=== PATIENT | female | born 1985 | race Caucasian/White ===

== ENCOUNTER → 2017-05-11 | Outpatient (CLI) | payer OTHER ==
[~2017-05-11] MED LIST: ALBU2.5V3 NEB; ARIP5TAB7 PO; BEN25 PO; BUPR150T6 PO; FLUT16SP17 NASAL; IBUP-1542 PO; TRIA15CR55 TOP
--- NOTE | 2017-05-11 10:55 | RADRPT ---
PROCEDURE: XR Pelvis and Hips. CLINICAL INDICATION: Pelvic pain. Bilateral hip pain. TECHNIQUE: Five views. Frontal pelvis. Frontal and lateral right hip. Frontal and lateral left hip. COMPARISON: 07/30/2016. FINDINGS: There is no fracture or dislocation. The soft tissues are normal. There are mild degenerative changes of both hips with osteophytes. There is no lytic or blastic lesion. There is no radiopaque foreign body. IMPRESSION: 1. Mild bilateral hip osteoarthrosis. 2. No change from 07/30/2016. RPTAT: QQ .Benito Dean MD, MD Date Time Electronically viewed and signed by .Benito Dean MD, MD on 05/11/2017 10:55 .R/
--- NOTE | 2017-05-11 19:33 | HKNOTE ---
DATE OF SERVICE: 05/11/2017 HISTORY OF PRESENT ILLNESS: The patient had a cortisone injection into her left greater trochanteric bursa in July 2016. This gave her excellent relief of the pain, which lasted several months. The pain has now recurred over the last 3 months and she requests repeat injection. PHYSICAL EXAMINATION: Clinically, the patient is morbidly obese. She has marked tenderness over the left greater trochanter. The hip itself is a full range of motion. Examination of the right hip with full range of motion without pain. IMAGING: Plain x-rays of the pelvis and hips obtained today show slight narrowing of the left hip joint space. DISCUSSION: The patient is only 31 years old. It is of concern that she has narrowing of her left hip joint space, at this point, but the degree of narrowing is unlikely to be causing any symptoms and she does not have any groin pain. DIAGNOSIS: 1. Trochanteric bursitis of the left hip. 2. Mild degenerative change on the left hip on x-ray. MANAGEMENT: Under sterile conditions, she was given injection of 2 cc of Kenalog and 6 cc of 2 percent lidocaine into the left trochanteric bursa and she will be seen again as necessary. Dictated By: Neal Chamorro MD /[email or web address] /Document#: [id number]
== END | disposition home or self-care (01) ==
LOC: HKI 10:02
DX: M70.62 Trochanteric bursitis, left hip (principal); M16.12 Unilateral primary osteoarthritis, left hip
CPT/HCPCS: 20610; 73523; Z7500; Z7610; G0463

== ENCOUNTER → 2018-01-28 | Outpatient (CLI) | END | disposition home or self-care (01) ==